=== PATIENT | female | born 1935 | race Caucasian/White ===

== ENCOUNTER 2023-05-05 10:36 | Observation (INO) | payer MEDICARE, SELFPAY ==
[2023-05-05] VITALS (10 sets, daily range): BP systolic 121–204; BP diastolic 65–88; PULSE 66–90; RESP 14–20; TEMP 36.4–37; O2SAT 95–99; BMI 27.1; BMI 26.6
--- NOTE | 2023-05-05 10:51 | ED.RN ---
around 0815, family member noticed she was confused, not answering questions as she normally would. no changes in speech noted. pt is alert/oriented now. pt also noticed her symptoms. symptoms lasted approx 1 hour or 1.5 hours. hx: TIA
--- NOTE | 2023-05-05 10:53 | EDS_ITS ---
HPI History of Present Illness Chief Complaint: Confusion [facility] Medical History (Updated 05/05/23 @ 10:47 by Beronica Flores) HTN (hypertension) TIA (transient ischemic attack) Home Medications calcium carbonate 600 mg-vitamin D3 5 mcg (200 unit) tablet (Calcium 600 + D(3)) 1 tab PO DAILY 05/05/23 [History Last Taken Unknown] cholecalciferol (vitamin D3) 10 mcg (400 unit) capsule (Vitamin D3) 400 unit PO DAILY 05/05/23 [History Last Taken Unknown] dorzolamide 22.3 mg-timolol 6.8 mg/mL eye drops 1 drp ophthalmic (eye) Q12H 05/05/23 [History Last Taken Unknown] hydrochlorothiazide 25 mg tablet 25 mg PO DAILY 05/05/23 [History Last Taken Unknown] metoprolol tartrate 50 mg tablet 50 mg PO Q12H 05/05/23 [History Last Taken Unknown] pravastatin 20 mg tablet 20 mg PO QHS 05/05/23 [History Last Taken Unknown] Allergy/AdvReac Type Severity Reaction Status Date / Time prednisone Allergy Unknown UNKNOWN Verified 05/05/23 10:38 Social History Smoking Status: Never smoker EXAM Physical Exam Const Vital Signs: 05/05/23 10:38 05/05/23 10:46 05/05/23 11:35 Temperature 97.5 F L Temperature Source Temporal Pulse Rate 69 74 70 Respiratory Rate 16 20 H 20 H Blood Pressure 202/79 H 204/81 H 190/84 H Blood Pressure Mean 120 122 119 Pulse Ox 99 98 96 Oxygen Delivery Method Room Air Room Air Room Air MDM MDM MDM Narrative Medical decision making narrative: HISTORY OF PRESENT ILLNESS: 87-year-old female here with concern for confusion. Per the patient's family this started 2 hours prior to arrival. They state patient was feeling well otherwise. They states she became confused sat down and was staring off into space this lasted for several minutes and improved over about an hour or so. No headache, no recent trauma no falls. Patient denies trouble with vision, slurred speech, difficulty swallowing, numbness or weakness or loss of sensation or movement in her extremities. Denies any chest pain or shortness of breath. Denies any vomiting or diarrhea. Denies any trouble with urination, dysuria, hematuria, foul-smelling urine. REVIEW OF SYSTEMS: Pertinent positives: Confusion Pertinent negatives: Head trauma, chest pain, shortness of breath, abdominal pain, vomiting, diarrhea, increased urination, dysuria, hematuria, cough, fever, sick contacts PHYSICAL EXAM: Nursing triage notes reviewed, Vital signs reviewed Constitutional: please see mdm HENT: MMM Eyes: Pupils equal round and reactive to light, Extraocular muscles intact Neck: No stridor, no JVD, full neck ROM Lungs: Clear to auscultation, No wheezing or rales. No increased work of breathing, no conversational dyspnea, no accessory muscle use, no nasal flaring. No respiratory distress noted Heart: Regular rate and rhythm, No murmurs, No rubs and No gallops, 2+ distal pulses (radial, femoral, posterior tibial) in all extremities Abdomen: Soft, there is no tenderness, rigidity, rebound or guarding, no obvious peritoneal signs, no palpable pulsatile abdominal masses, no auscultated abdominal bruit : No CVAT Extremities: No edema Neuro: Alert and oriented x3, neuro exam at baseline, cranial nerves II through XII are intact. No pain with extraocular muscle movement. There is negative test of skew. 5 of 5 strength in upper and lower extremities in flexion extension. Intact sensation to light touch in upper and lower extremity dermatomes. No truncal or extremity ataxia. No dysdiadochokinesia. Normal gait. 2+ reflexes in upper and lower extremities. No meningeal signs. Negative Babinski. NIH of 0. Skin: No rash or lesions noted MEDICAL DECISION MAKING: Chief Complaint: Confusion External records reviewed: Imaging reviewed: No recent advanced imaging of the brain Factors affecting care: Hypertension, hyperlipidemia, TIA Social determinants of health: Elderly History obtained from others: The patient's family Consults: none [facility] Narrative: Patient was initially hypertensive, tachypneic afebrile and nontoxic-appearing. I considered the following differential diagnosis: CVA, TIA, ICH, UTI, other infectious or metabolic encephalopathy I obtained a broad lab and imaging workup to further elucidate the etiology of the patient's complaints. We monitored her blood pressure closely. We will assess the need for additional doses of her home blood pressure regimen if her blood pressures do not improve with time. ALL IMAGES (IF OBTAINED) HAVE BEEN PERSONALLY REVIEWED AND INTERPRETED BY MYSELF. EKG with normal sinus rhythm, normal axis, normal intervals, no obvious STEMI or other ischemic changes Initial high-sensitivity troponin is elevated consistent with myocardial ischemia, repeat high-sensitivity troponin continues to elevate concerning for myocardial ischemia BNP elevated consistent with volume overload, increased ventricular stretch and increase transmural pressure Urinalysis shows no evidence of urinary inflammation suggestive of UTI PTT, PT/INR within normal limits suggest no coagulopathy CBC without leukocytosis, severe anemia, no thrombocytopenia. BMP without evidence of significant electrolyte abnormalities, no anion gap, no acute kidney injury. I have personally reviewed the patient's chest x-ray. Chest x-ray is unremarkable for pulmonary edema, pneumothorax, pneumonia or focal car diopulmonary abnormality. The synthesis of the patient's history, physical exam, vital signs, labs, images suggest hypertensive urgency versus emergency. I do not suspect the patient suffering from coronary artery occlusion given nonischemic EKG however I think her elevated blood pressure caused demand ischemia. She is given aspirin. He is admitted for further monitoring, telemetry monitoring, echocardiogram. The patient and/or family, caregivers express understanding. The patient and/or family, caregivers agrees with the plan. Shared decision making: I will have a discussion with the patient and or visitors regarding risk/benefits of further testing or admission. They will be made aware of of the risk/benefits inherent in this decision they will be given the opportunity to voice understanding. Total critical care time today provided was at least 0 minutes. This excludes separately billable procedures. Critical care time (if documented) is secondary to the patient having high probability of clinically significant/life threatening deterioration in the patient's condition which required my urgent intervention. Impression: 1. Transient confusion 2. Hypertensive urgency vs emergency 3. Elevated troponin Dispo: admit to PCU Obs Lab Data Labs: Laboratory Results - last 24 hr 05/05/23 05/05/23 05/05/23 10:45 10:50 11:40 WBC 6.5 RBC 4.45 Hgb 13.2 Hct 41.0 MCV 92.1 MCH 29.7 MCHC 32.2 RDW Std Deviation 44.1 H RDW Coeff of Domitila 13.0 Plt Count 157 MPV 11.2 Immature Gran % (Auto) 0.500 Neut % (Auto) 77.0 H Lymph % (Auto) 13.1 L [place] % (Auto) 7.4 Eos % (Auto) 1.7 Baso % (Auto) 0.3 Absolute Neuts (auto) 5.0 Absolute Lymphs (auto) 0.85 Nucleated RBC % 0 PT 13.3 INR 1.0 APTT 35.5 Sodium 138 Potassium 3.7 Chloride 102 Carbon Dioxide 32.0 Anion Gap 4 L BUN 19 H Creatinine 0.95 Estim Creat Clear Calc 37.54 Est GFR (MDRD) Af Amer 71 Est GFR (MDRD) Non-Af 59 L BUN/Creatinine Ratio 20.0 Glucose 116 H Calcium 9.7 Troponin I High Sens 72 H B-Natriuretic Peptide 157.7 H Urine Color Yellow Urine Clarity Clear Urine pH 8.0 Ur Specific [place] 1.015 Urine Protein Negative Urine Glucose (UA) Normal Urine Ketones Negative Urine Occult Blood 50 H Urine Nitrite Negative Urine Bilirubin Negative Urine Urobilinogen Normal Ur Leukocyte Esterase 25 H Urine RBC 5-10 SEEN Urine WBC 0-5 SEEN Ur Squamous Epith Cells 0-5 SEEN Urine Bacteria 0 SEEN Urine Mucus 0 SEEN POC Glucose 104 Radiography Diagnostic Testing: Clinical Impression(s) from Imaging Studies Chest X-Ray 05/05/23 11:05 IMPRESSION: No radiographic evidence of acute cardiopulmonary disease. Electronically Signed: Doug Mccloud MD at 11:30 EST , Discharge Plan Triage Chief Complaint: Confusion ED Provider: Slade Martin Dx/Rx/DC Orders Prescriptions: No Action cholecalciferol (vitamin D3) [Vitamin D3] 10 mcg (400 unit) capsule 400 unit PO DAILY calcium carbonate-vitamin D3 [Calcium 600 + D(3)] 600 mg-5 mcg (200 unit) tablet 1 tab PO DAILY hydrochlorothiazide 25 mg tablet 25 mg PO DAILY Patient Comments: TAKE 1 TABLET BY MOUTH EVERY DAY metoprolol tartrate 50 mg tablet 50 mg PO Q12H Patient Comments: Take 1 tablet by mouth two times a day. replaces atenolol pravastatin 20 mg tablet 20 mg PO QHS Patient Comments: TAKE 1 TABLET BY MOUTH ONCE DAILY dorzolamide-timolol 22.3-6.8 mg/mL drops 1 drp ophthalmic (eye) Q12H Patient Comments: INSTILL 1 DROP INTO BOTH EYES TWICE A DAY Primary Care Provider: Kristal Escobar Referrals: Kristal Escobar MD [Primary Care Provider] -
--- NOTE | 2023-05-05 11:04 | ED.RN ---
Dr. Alfaro ordered to not call stroke Alert at this time
--- NOTE | 2023-05-05 11:05 | RAD_ITS ---
INDICATION: Neuro deficit, acute, stroke suspected EXAMINATION/TECHNIQUE: X-RAY - XR Chest 1 View COMPARISON: No relevant prior comparison study available FINDINGS: LINES/DEVICES: None. LUNGS: No consolidation, edema or effusion. No pneumothorax. MEDIASTINUM AND CARDIOVASCULAR STRUCTURES: Cardiac silhouette not enlarged. Central airways and mediastinal contour are unremarkable. BONES AND SOFT TISSUES: [Irregularity of the right greater tuberosity with adjacent small calcification suggestive of calcific tendinitis of the right shoulder. RAD/Chest 1 View IMPRESSION: No radiographic evidence of acute cardiopulmonary disease. Electronically Signed: Doug Mccloud MD at 11:30 EST ,
--- NOTE | 2023-05-05 11:07 | CT_ITS ---
INDICATION: confusion EXAMINATION: CT BRAIN WITHOUT CONTRAST, CTA HEAD, AND CTA NECK TECHNIQUE: Noncontrast axial images were obtained of the brain. Subsequently, routine carotid CT angiogram protocol was performed without and with IV contrast. In addition, images were obtained of the [place] of [place]. NASCET criteria using the distal ICAs for comparison were used for evaluation of stenoses. 3D reconstructions were reviewed. A radiation dose optimization technique was used for this scan. IV Contrast dosage and agent: 100 cc of [id number] COMPARISON: No relevant prior comparison study available FINDINGS: --CT BRAIN WITHOUT CONTRAST: BRAIN PARENCHYMA: No intra- or extra-axial hemorrhage. No evidence of acute infarct. No intracranial mass or mass effect. There is preservation of the mai/white matter interface. Posterior fossa structures are unremarkable. CSF SPACES: Appropriate for age. No hydrocephalus. Basal cisterns are patent. CALVARIUM, SKULL BASE, PARANASAL SINUSES AND MASTOID AIR CELLS: Retention cysts or polyps in both maxillary sinuses. --CTA NECK: AORTIC ARCH AND BRANCHES: Normal anatomy, patent. RIGHT CCA: Atherosclerotic calcifications in the region of the right bulb region with less than 50% stenosis. RIGHT ICA: No occlusion, significant stenosis or dissection. LEFT CCA: Mild atherosclerotic calcifications in the left bulb region without significant stenosis. LEFT ICA: No occlusion, significant stenosis or dissection. RIGHT VERTEBRAL ARTERY: No occlusion, significant stenosis or dissection. LEFT VERTEBRAL ARTERY: No occlusion, significant stenosis or dissection. NECK SOFT TISSUES: Unremarkable. --CTA HEAD: --Anterior circulation: ICAs: No significant stenosis at the intracranial/visualized segments. ACAs: No significant stenosis at the visualized segments. ACOM: Present. MCAs: No significant stenosis at the visualized segments. --Posterior circulation: PCOMs: Patent. packaging line attendant: origin of the left posterior cerebral artery. No significant stenosis. BASILAR ARTERY: No significant stenosis. VERTEBRAL ARTERIES: No significant stenosis at the intradural/visualized segments. Dominant right side. No evidence of intracranial aneurysm or vascular malformation. CT/CTA Head AND Neck W/ Contrast IMPRESSION: 1. No acute intracranial process. 2. Atherosclerotic calcifications in the bulb regions bilaterally with less than 50% stenosis of the right common carotid artery. 3. No intracranial great vessel stenosis. 4. Patent bilateral vertebral arteries without evidence of stenosis or dissection. Electronically Signed: Doug Mccloud MD at 12:33 EST ,
[2023-05-05 11:11] LABS: Bedside Glucose 104 mg/dL (74-106)
--- NOTE | 2023-05-05 11:13 | ED.RN ---
NO OLD EKG
[2023-05-05 11:18] LABS: Absolute Lymphocyte Count 0.85 X10^3/uL (0.83-4.51); Basophil# 0.02 X10^3/uL; Basophil% 0.3 % (0-1); Eosinophil# 0.11 X10^3/uL; Eosinophils% 1.7 % (0-5); Hemoglobin 13.2 g/dL (12.0-15.0); Lymphocyte # 0.85 X10^3/ul (0.83-4.51); Lymphocyte % 13.1 % (19-41); Mean Corp Hgb Conc 32.2 g/dL (32-36); Mean Corpuscular Hgb 29.7 pg (27.0-32.0); Mean Corpuscular Volume 92.1 fL (81-99); Mean Platelet Vol. 11.2 fl (6.2-12.0); Monocyte# 0.48 X10^3/uL; Monocyte% 7.4 % (0-10); NRBC Flagged by Analyzer 0 % (0-5); Neutrophil # 4.98 X10^3/uL (2.7-7.7); Platelet Count 157 K/mm3 (150-450); RBC Distribution Width SD 44.1 fl (35.1-43.9); Red Blood Count 4.45 M/mm3 (4.2-5.4); White Blood Count 6.5 K/mm3 (4.4-11.0)
[2023-05-05 11:22] LABS: Prothrombin Time (Protime)PT. 13.3 SECONDS (11.7-14.9)
[2023-05-05 11:23] LABS: Partial Thromboplast Time 35.5 Seconds (24.1-36.2)
[2023-05-05 11:34] LABS: Anion Gap 4 (5-15); BUN 19 mg/dL (7-18); Calcium,Total 9.7 mg/dL (8.5-10.1); Chloride 102 mmol/L (98-107); Creatinine, Serum 0.95 mg/dL (0.55-1.02); EST Glomerular Filtration Rate 59 mL/min (>60); Est Glom Filt Rate - Afr Amer 71 mL/min (>60); Estimated Creatinine Clearance 37.54 ml/min; Glucose 116 mg/dL (74-106); Potassium 3.7 mmol/L (3.5-5.1); Sodium Level 138 mmol/L (136-145); Troponin-I HS 72 pg/mL (3.0-54.0)
[2023-05-05 11:48] LABS: Bacteria 0 SEEN /hpf (None Seen); Mucous, Urine 0 SEEN /hpf (<or=2+)
[2023-05-05 11:52] LABS: Color, Urine Yellow (Yellow); Glucose, Dipstick Normal (Normal); Ketone-Dipstick Negative (Negative); Leukocyte Esterase-Dipstick 25 /ul (Negative); Nitrite-Dipstick Negative (Negative); Occult Blood-Urine 50 /ul (Negative); Protein-Dipstick Negative (Negative); Specific Gravity, Urine 1.015 (1.002-1.030); Urine Bilirubin Dipstick Negative (Negative); Urine Clarity Clear (Clear); Urine Urobilinogen Normal (Normal)
[2023-05-05 12:05] LABS: BNP,B-Type NATRIURETIC PEPTIDE 157.7 pg/mL (0-100)
[2023-05-05 12:18] LABS: Red Blood Cells-Urine 5-10 SEEN /hpf (0-5); Squamous Epithelial Cells - UA 0-5 SEEN /hpf (5-10); White Blood Cells 0-5 SEEN /hpf (0-5)
[2023-05-05] MEDS: Aspirin 325 MG Tablet PO (12:47)
[2023-05-05 13:42] LABS: Troponin-I HS 123 pg/mL (3.0-54.0)
--- NOTE | 2023-05-05 14:09 | HP.PCM.HOS_ITS ---
HPI - General General Date of Service: 05/05/23 Chief Complaint: TIA r/o and htn urgency vs emergency HPI Narrative GOLDY CUNNINGHAM, is a 87-year-old female with a history of hypertension presented to [facility] 05/05/2023 due to confusion started 2 hours prior to arrival. She became confused and sat down and stared off into space for several minutes with symptoms improving over an hour or so and she was back to normal by presentation in the ED. There were no other associated symptoms. In the ED her blood pressure was 202/79 and her troponin was 72 and up trended to 123. She was given the option by ED physician of coming in overnight for monitoring and further work-up versus home and patient preferred to stay. Hospitalist contacted for admission. Seen with family members at bedside. She has been in her usual health but then earlier today some asked her a question and she stared into space for 3 minutes and then was slightly conf used but came back to baseline over 1 hour and had no further confusion or other complaints. Presently has 0 complaints and feels she is back to normal and denied anything or any complaints proceeding this episode. [facility] Medical History (Updated 05/05/23 @ 14:[address] Ananya Marlow MD) HTN (hypertension) TIA (transient ischemic attack) Home Medications calcium carbonate 600 mg-vitamin D3 5 mcg (200 unit) tablet (Calcium 600 + D(3)) 1 tab PO DAILY 05/05/23 [History Last Taken Unknown] cholecalciferol (vitamin D3) 10 mcg (400 unit) capsule (Vitamin D3) 400 unit PO DAILY 05/05/23 [History Last Taken Unknown] dorzolamide 22.3 mg-timolol 6.8 mg/mL eye drops 1 drp ophthalmic (eye) Q12H [History Last Taken Unknown] hydrochlorothiazide 25 mg tablet 25 mg PO DAILY 05/05/23 [History Last Taken Unknown] metoprolol tartrate 50 mg tablet 50 mg PO Q12H 05/05/23 [History Last Taken Unk nown] pravastatin 20 mg tablet 20 mg PO QHS 05/05/23 [History Last Taken Unknown] Allergy/AdvReac Type Severity Reaction Status Date / Time prednisone Allergy Unknown UNKNOWN Verified 05/05/23 10:38 Social History Smoking Status: Never smoker ROS ROS Narrative General: Denies fever/chills HENT: Denies headache, denies stuffy nose, denies sore throat EYES: Denies changes in vision Resp: Denies cough, denies shortness of breath Cardiac: Denies chest pain GI: Denies abdominal pain, denies changes in bowel, denies nausea/vomiting : Denies changes in urination Extremity: Denies swelling MSK: Denies weakness Neuro: Denies any numbness/tingling Heme: Denies any bleeding or bruising Skin: Denies rashes Psychiatric: No complaints voiced Vital Signs Vital Signs Vital Signs: 05/05/23 10:38 05/05/23 10:46 05/05/23 11:35 Temperature 97.5 F L Temperature Source Temporal Pulse Rate 69 74 70 Respiratory Rate 16 20 H 20 H Blood Pressure 202/79 H 204/81 H 190/84 H Blood Pressure Mean 120 122 119 Pulse Ox 99 98 96 Oxygen Delivery Method Room Air Room Air Room Air 05/05/23 12:43 05/05/23 12:48 05/05/23 12:49 Temperature 97.7 F L Temperature Source Pulse Rate 80 90 Respiratory Rate 18 18 Blood Pressure 154/88 H 121/65 H 121/65 H Blood Pressure Mean 110 83 83 Pulse Ox 97 96 Oxygen Delivery Method Room Air Weight Weight: 74.162 kg Body Mass Index (BMI) 27.1 Physical Exam Narrative General: Alert, oriented, no apparent distress HEENT: Atraumatic, normocephalic Eyes: Anicteric, normal conjunctiva, extraocular movements intact, pupils equal Neck: Supple Respiratory: Clear to auscultation bilaterally, normal respiratory effort Cardiovascular: Regular rate and rhythm GI: Soft, nontender, nondistended Extremities: No edema Musculoskeletal: Strength 5 out of 5 in right upper extremity, 5 out of 5 left upper extremity, 5 out of 5 right lower extremity, 5 out of 5 left lower extremity Neuro: No overt focal neurological deficits, cranial nerves II through XII intact, [id number] without significant difficulty bilaterally Skin: No rashes appreciated Psych: Cooperative Results Lab / Micro Data 05/05/23 10:50 05/05/23 10:50 Labs: Laboratory Results - last 24 hr 05/05/23 10:45: POC Glucose 104 05/05/23 10:50: WBC 6.5, RBC 4.45, Hgb 13.2, Hct 41.0, MCV 92.1, MCH 29.7, MCHC 32.2, RDW Std Deviation 44.1 H, RDW Coeff of Domitila 13.0, Plt Count 157, MPV 11.2, Immature Gran % (Auto) 0.500, Neut % (Auto) 77.0 H, Lymph % (Auto) 13.1 L, [place] % (Auto) 7.4, Eos % (Auto) 1.7, Baso % (Auto) 0.3, Absolute Neuts (auto) 5.0, Absolute Lymphs (auto) 0.85, Nucleated RBC % 0, PT 13.3, INR 1.0, APTT 35.5, Sodium 138, Potassium 3.7, Chloride 102, Carbon Dioxide 32.0, Anion Gap 4 L, BUN 19 H, Creatinine 0.95, Estim Creat Clear Calc 37.54, Est GFR (MDRD) Af Amer 71, Est GFR (MDRD) Non-Af 59 L, BUN/Creatinine Ratio 20.0, Glucose 116 H, Calcium 9.7, Troponin I High Sens 72 H, B-Natriuretic Peptide 157.7 H 05/05/23 11:40: Urine Color Yellow, Urine Clarity Clear, Urine pH 8.0, Ur Specific [place] 1.015, Urine Protein Negative, Urine Glucose (UA) Normal, Urine Ketones Negative, Urine Occult Blood 50 H, Urine Nitrite Negative, Urine Bilirubin Negative, Urine Urobilinogen Normal, Ur Leukocyte Esterase 25 H, Urine RBC 5-10 SEEN, Urine WBC 0-5 SEEN, Ur Squamous Epith Cells 0-5 SEEN, Urine Bacteria 0 SEEN, Urine Mucus 0 SEEN 05/05/23 12:40: Troponin I High Sens 123 H* Imagaing Radiology Impression Chest X-Ray 05/05/23 11:05 IMPRESSION: No radiographic evidence of acute cardiopulmonary disease. Electronically Signed: Doug Mccloud MD at 11:30 EST , Head/Neck CTA 05/05/23 11:07 IMPRESSION: 1. No acute intracranial process. 2. Atherosclerotic calcifications in the bulb regions bilaterally with less than 50% stenosis of the right common carotid artery. 3. No intracranial great vessel stenosis. 4. Patent bilateral vertebral arteries without evidence of stenosis or dissection. Electronically Signed: Doug Mccloud MD at 12:33 EST , Assessment & Plan Assessment/Plan (1) Accelerated hypertension: (2) Transient confusion: (3) History of lumbar surgery: PLAN: Plan #Transient altered mental status/unresponsive for 3 minutes return back to baseline over 1 hour -May be due to hypertensive emergency versus TIA -Admit to tele -CTA head and neck in ED with no significant stenosis or stroke -MRI unable to be obtained, per patient she had a edis placed in her back 15 years ago and was specifically told she cannot have an MRI, will repeat CT scan in 24 hours -NIH q4hr -asa, statin -Echo w/ bubble study -PT/OT/Speech eval -Hold BP medications to allow for permissive hypertension for 24 hours unless SBP greater than 220 or DBP greater than 120 or until stroke is ruled out #Elevated troponin/hypertensive emergency -Patient with blood pressure 202/79 in the ED when she arrived with a troponin of 72 up trended to 123 -No chest pain or other underlying etiology suggesting a primary cardiac complaint -Suspect the elevated troponin is secondary to her very high blood pressure which would lead to diagnosis of hypertensive emergency -BP back down to normal range at this time -Does report compliance with her home medications and took them this morning -Trending troponin -We will obtain echocardiogram -We will obtain TSH #DVT ppx: Lovenox subcu Ananya Marlow MD Time spent in the patient's overall evaluation,decision-making process, review of diagnostic data, adjustment of management, discussion with other providers, nursing nursing and ancillary staff involved in patient's care documentation, 55 minutes Charges/Coding Visit Charges Inpatient E&M: 14441 Init Hosp L2
--- NOTE | 2023-05-05 14:13 | ECHOD_ITS ---
Reason For Study: TIA/Stroke Procedure This was a 2D Doppler, Color Flow transthoracic echocardiogram. Exam performed portable in patient room. Left Ventricle Normal size and thickness. The left ventricular ejection fraction is 65 %. Normal diastology for age. Right Ventricle Normal right ventricle. Atria The left atrium is moderately enlarged. Normal right atrium. Bubble contrast study is negative for PFO/ASD. Mitral Valve There is Mild focal posterior mitral annular calcification. Mild (1+) mitral valve insufficiency. Tricuspid Valve Mild tricuspid valve insufficiency. Normal pulmonary artery pressure. Aortic Valve Trisinus/trileaflet aortic valve. Mild-Moderate (1-2+) aortic valve insufficiency. Pulmonic Valve The pulmonic valve is not well visualized. Trivial pulmonic valve insufficiency. Great Vessels Normal sized aortic root. Pericardium/Pleural Small loculated posterior basal pericardial effusion. Medication Performed a rapid injection of agitated mix of 9 cc saline and 1cc air to assess for atrial septal defect. MMode/2D Measurements & Calculations LVIDd: 4.1 cm IVSd: 1.1 cm Ao root diam: 3.5 cm LVIDs: 2.2 cm LVPWd: 0.92 cm RVDd: 2.8 cm FS: 46.6 % LAV(MOD-bp): 44.8 ml LVAd ap4: 20.3 cm2 SV(MOD-sp4): 39.1 ml LAV(MOD-bp) Indexed: 24.9 ml/m2 LVLd ap4: 6.2 cm LAV(MOD-sp2): 40.5 ml EDV(MOD-sp4): 55.6 ml LAV(MOD-sp4): 47.9 ml EDV(sp4-el): 56.2 ml LVAs ap4: 9.5 cm2 LVLs ap4: 5.3 cm ESV(MOD-sp4): 16.5 ml ESV(sp4-el): 14.4 ml EF(MOD-sp4): 70.3 % EF(sp4-el): 74.4 % SV(sp4-el): 41.8 ml LA A4 area: 18.2 cm2 LA dimension(2D): 4.0 cm RA A4 area: 12.2 cm2 TAPSE: 1.9 cm Time Measurements MV dec time: 0.20 sec Doppler Measurements & Calculations MV E max justino: 78.9 cm/sec Lat Peak E' Justino: 6.9 cm/sec Med Peak E' Justino: 5.2 cm/sec MV A max justino: 61.1 cm/sec E/E' lat: 11.5 E/E' med: 15.1 MV E/A: 1.3 MV dec slope: 393.7 cm/sec2 Ao V2 max: 159.8 cm/sec AI max justino: 453.2 cm/sec Ao max P.2 mmHg AI max P.2 mmHg Ao V2 mean: 110.1 cm/sec AI dec slope: 313.7 cm/sec2 Ao mean P.3 mmHg AI P1/2t: 423.2 msec Ao V2 VTI: 30.2 cm AV (velocity ratio): 0.90 LV V1 max: 120.3 cm/sec PA V2 max: 99.1 cm/sec TR max justino: 258.1 cm/sec LV V1 max P.8 mmHg TR max P.6 mmHg LV V1 mean P.9 mmHg LV V1 mean: 79.2 cm/sec LV V1 VTI: 27.1 cm ECHO/Echo Complete Interpretation Summary The left ventricular ejection fraction is 65 %. The left atrium is moderately enlarged. Mild (1+) mitral valve insufficiency. There is Mild focal posterior mitral annular calcification. Mild tricuspid valve insufficiency. Mild-Moderate (1-2+) aortic valve insufficiency. Small loculated posterior basal pericardial effusion. Bubble contrast study is negative for PFO/ASD. Ordering Physician: Ananya Marlow Referring Physician: Kristal Escobar Performed By: Rosi Diaz, TYLER, RVT
[2023-05-05 18:37] LABS: Troponin-I HS 152 pg/mL (3.0-54.0)
[2023-05-05] MEDS: Atorvastatin Calcium 40 MG Tablet PO (21:08)
[2023-05-05] MEDS: Dorzolamide HCL/Timolol 10 ml Bottle 1 DRP OPHTHALMIC (21:08)
[2023-05-05] MEDS: MELATONIN 10 MG TABLET PO (22:32)
[2023-05-06 01:05] VITALS: BP 128/68; PULSE 65; RESP 16; TEMP 37; O2SAT 94
[2023-05-06 04:49] VITALS: BMI 26.6
[2023-05-06 05:05] VITALS: BP 133/72; PULSE 65; RESP 16; TEMP 36.9; O2SAT 99
[2023-05-06 06:38] LABS: Absolute Lymphocyte Count 1.03 X10^3/uL (0.83-4.51); Absolute Neutrophil Count 3.2 X10^3/uL (2.0-7.7); Basophil# 0.02 X10^3/uL; Basophil% 0.4 % (0-1); Eosinophil# 0.07 X10^3/uL; Eosinophils% 1.5 % (0-5); Hematocrit 36.8 % (37-47); Hemoglobin 11.6 g/dL (12.0-15.0); Lymphocyte # 1.03 X10^3/ul (0.83-4.51); Lymphocyte % 21.5 % (19-41); Mean Corp Hgb Conc 31.5 g/dL (32-36); Mean Corpuscular Hgb 29.5 pg (27.0-32.0); Mean Corpuscular Volume 93.6 fL (81-99); Mean Platelet Vol. 11.2 fl (6.2-12.0); Monocyte# 0.42 X10^3/uL; Monocyte% 8.8 % (0-10); NRBC Flagged by Analyzer 0 % (0-5); Neutrophil # 3.24 X10^3/uL (2.7-7.7); Neutrophil % 67.4 % (47-70); Platelet Count 141 K/mm3 (150-450); RBC Distribution Width CV 13.2 % (11.6-14.6); RBC Distribution Width SD 45.2 fl (35.1-43.9); Red Blood Count 3.93 M/mm3 (4.2-5.4); White Blood Count 4.8 K/mm3 (4.4-11.0)
[2023-05-06 07:32] LABS: Anion Gap 6 (5-15); BUN 25 mg/dL (7-18); BUN/Creat Ratio 26.3 RATIO (10-20); Calcium,Total 9.3 mg/dL (8.5-10.1); Chloride 106 mmol/L (98-107); Cholesterol 180 mg/dL (200); Creatinine, Serum 0.95 mg/dL (0.55-1.02); EST Glomerular Filtration Rate 59 mL/min (>60); Est Glom Filt Rate - Afr Amer 72 mL/min (>60); Estimated Creatinine Clearance 37.54 ml/min; Glucose 111 mg/dL (74-106); High Density Lipoprotein 48 mg/dL; Potassium 3.6 mmol/L (3.5-5.1); Sodium Level 140 mmol/L (136-145); Thyroid Stim Hormone (TSH) 4.98 uIU/mL (0.358-3.74); Triglycerides 113 mg/dL; Very Low Density Lipoprotein 23 mg/dL (5-40)
[2023-05-06 08:03] VITALS: BP 177/83; PULSE 77; RESP 14; TEMP 36.9; O2SAT 99
[2023-05-06] MEDS: Dorzolamide HCL/Timolol 10 ml Bottle 1 DRP OPHTHALMIC (08:05)
[2023-05-06] MEDS: Aspirin 81 MG TAB.CHEW PO (08:06)
[2023-05-06] MEDS: Enoxaparin 40 MG/0.4 ML Syringe SC (08:06)
[2023-05-06 08:48] LABS: Troponin-I HS 45 pg/mL (3.0-54.0)
[2023-05-06 09:40] VITALS: O2SAT 96
--- NOTE | 2023-05-06 12:10 | CASEMGMT ---
Social Work SW met w/pt in room, pt completed PHQ-9 w/SW. No indications of depression at this time. Pt lives home alone, is fully independent, was getting Thanksgiving dinner ready for her family when pt had to come into the hospital. No referrals needed at this time. NAVARRO Lemus
--- NOTE | 2023-05-06 13:00 | CT_ITS ---
STUDY: CT BRAIN WITH AND WITHOUT CONTRAST REASON FOR EXAM: Female, 87 years old. Altered mental status RADIATION DOSAGE (If Supplied By Facility): CTDIvol = ( 44.99 ) mGy, DLP = ( 1479.73 ) mGycm TECHNIQUE: Transaxial CT imaging of the brain was performed pre and post contrast administration. The examination was performed with intravenous administration of IV 50mL Isovue-300. Individualized dose optimization techniques were used for this CT. COMPARISON: None. FINDINGS: Normal soft tissue structures. Normal calvarium. Normal size ventricles and extra-axial spaces for the patient''s age. Normal white matter tracts of the cerebral hemispheres. Normal basal ganglia and thalami. Normal brainstem. Normal cerebellum. There is no intracranial hemorrhage. There are no findings of an acute ischemic infarction. Mucous retention cyst/polyp in the left maxillary sinus No suspicious enhancing lesion. CT/Brain/Head W/WO Contrast IMPRESSION: Age consistent changes, no acute findings, no suspicious enhancing lesion Electronically Signed: Carmine Reyes MD at 14:24 EST ,
--- NOTE | 2023-05-06 13:30 | CASEMGMT ---
[facility] NOTE: PT/OT notes have been reviewed--no additional therapy recommended. ST eval has been completed. Reg diet and thin liquids recommended. RN CM to room. Pt resting in bed. Pt denies having any discharge needs or concerns. Jose VASQUEZN RN CM
[2023-05-06 14:00] VITALS: BP 115/67; PULSE 76; RESP 14; TEMP 36.9; O2SAT 99
--- NOTE | 2023-05-06 14:32 | CASEMGMT ---
Met with patient and her daughter to complete ARIZA form. ARIZA form explained to patient who voiced understanding and signed form. Original form placed in pt?s chart and copy provided to patient. Triny Carrion, Discharge Planning Asst
--- NOTE | 2023-05-06 14:52 | PCM.DC.SUM ---
Providers Date of Admission: 05/05/23 Date of Discharge: 05/06/23 Primary Care Physician: Dr. Kristal Escobar MD Reason For Visit: TIA AND HTN URGENCY VS EMERGENCY Diagnosis Discharge Diagnosis (1) Accelerated hypertension: Status: Acute Code(s): I10 - Essential (primary) hypertension (2) Transient confusion: Status: Acute Code(s): R41.0 - Disorientation, unspecified (3) History of lumbar surgery: Status: Acute Code(s): Z98.890 - Other specified postprocedural states Medications at Discharge Home Medications calcium carbonate 600 mg-vitamin D3 5 mcg (200 unit) tablet (Calcium 600 + D(3)) 1 tab PO DAILY 05/05/23 cholecalciferol (vitamin D3) 10 mcg (400 unit) capsule (Vitamin D3) 400 unit PO DAILY 05/05/23 dorzolamide 22.3 mg-timolol 6.8 mg/mL eye drops 1 drp ophthalmic (eye) Q12H 05/05/23 hydrochlorothiazide 25 mg tablet 25 mg PO DAILY 05/05/23 metoprolol tartrate 50 mg tablet 50 mg PO Q12H 05/05/23 pravastatin 20 mg tablet 20 mg PO QHS 05/05/23 amlodipine 2.5 mg tablet 2.5 mg PO DAILY #30 tabs 05/06/23 aspirin 81 mg chewable tablet 81 mg PO BREAKFAST #0 tabs 05/06/23 Hospital Course Procedures 2-D Echocardiogram, EKG and - (CT brain x 2/EEG) Summary of Care Provided Minutes Spent on Discharge: 30 Hospital Course: Mrs. Reddy is an 87-year-old white female who appears much younger than stated age that presented to the emergency department at [facility] on 05/05/2023 with a chief complaint of transient confusion. The confusion started approximately 2 hours prior to arrival. She was cooking Thanksgiving dinner and became confused and sat down and stared off into space for several minutes with symptoms improving after about an hour or so. At the time of presentation to the emergency department she was back to her normal baseline. Per her son she had no other associated symptoms. Blood pressure on arrival to the emergency department was found to be 202/79 and her initial troponin was 72 with an uptrend to 123 on repeat. However her troponin resolved back to normal today after admission. She was given the option by the ED physician to coming in overnight for monitoring and further workup versus discharge home and the patient preferred to stay given the symptoms. She had been in her usual state of health and been compliant with her medications when she had the event. Family states lasted approximately 2 to 3 minutes and then she was slightly confused but came back to her baseline over an hour and had no other complaints. Her NIH on presentation was 0. CT on presentation was unremarkable and CTA of the head and neck showed no acute intracranial process with atherosclerotic calcifications at the bulb of the right common carotid artery that is less than 50% and no intracranial great vessel stenosis with patent vertebral arteries bilaterally. She was to the PCU and monitored on telemetry. No abnormal telemetry events were noted. An echocardiogram was performed and showed an EF of 65% with a moderately enlarged LA, moderate aortic valve insufficiency and a small basal pericardial effusion with a negative bubble study. EEG was performed and showed no epileptiform discharges or abnormalities. CT of the brain initially was unremarkable repeat CT of the brain was done at 24 hours with contrast as the patient has metallic implants and is unable to have an MRI. This demonstrated age consistent changes with no acute findings and no suspicious enhancing lesions. Her blood pressure came down nicely without any significant treatment. Given her negative CT findings she was restarted on her home antihypertensives and in addition we added a low-dose amlodipine at 2.5 mg daily. I have asked her to follow-up with her primary care physician for a blood pressure check with the additional medication. Goal blood pressure should be below 130/80. She may need up titration of medications depending on the changes with her low-dose Norvasc addition. She was instructed to continue home baby aspirin and continue the rest of her baseline medications. Prescription for the Norvasc was sent to her local pharmacy and she was discharged home in stable condition on 05/06/2023. Discharge diagnoses: Transient global amnesia Hypertensive urgency/emergency Troponin elevation Right carotid artery stenosis Hypertension Hyperlipidemia History of lumbar fusion History of TIA Physical Exam Const alert, oriented x3, no apparent distress, average body habitus, no limitations, healthy appearing and well nourished Constitutional Narrative: Extremely pleasant, elderly, white female, sitting up in bed, appears younger than stated age, comfortable and nontoxic appearing General Appearance: cooperative, comfortable, well kempt and well developed Orientation / Consciousness: awake, oriented to person, oriented to place and oriented to time Exam Limitations: no limitations HEENT normocephalic, head/scalp atraumatic, hearing grossly normal bilaterally and moist oral mucous membranes HEENT Narrative: Mallampati 2, no thrush, dentures in place Eyes PERRL, EOMs intact bilaterally and conjunctivae normal Eyes Narrative: No scleral icterus Neck no lymphadenopathy and supple Neck Narrative: Trachea midline, no thyroid in the Resp normal respiratory effort, no retractions, no use of accessory muscles and clear to auscultation bilaterally Auscultation: Negative for rales, rhonchi or wheezes Cardio regular rate, regular rhythm, S1 normal heart sound, S2 normal heart sound, no murmurs, no rub, no gallops and no clicks GI normal to inspection, nondistended, normoactive bowel sounds, soft to palpation and non-tender Extremity no clubbing, cyanosis or edema Extremity Narrative: 2+ pedal pulses Neuro oriented x3, CN's II-XII intact bilaterally, moves all extremities, no focal motor deficits and no sensory deficits noted Neuro Narrative: Mild generalized weakness with proximal musculature being slightly diminished this is 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 Speech: speech normal Psych affect normal Weight / BMI Weight Weight: 72.7 kg Body Mass Index (BMI) 26.6 ABG / Lab / Microbiology Data 05/06/23 06:10 05/06/23 06:10 Laboratory: Laboratory Results - last 24 hr 05/05/23 17:03: Troponin I High Sens 152 H* 05/06/23 06:10: WBC 4.8, RBC 3.93 L, Hgb 11.6 L, Hct 36.8 L, MCV 93.6, MCH 29.5, MCHC 31.5 L, RDW Std Deviation 45.2 H, RDW Coeff of Domitila 13.2, Plt Count 141 L, MPV 11.2, Immature Gran % (Auto) 0.400, Neut % (Auto) 67.4, Lymph % (Auto) 21.5, [place] % (Auto) 8.8, Eos % (Auto) 1.5, Baso % (Auto) 0.4, Absolute Neuts (auto) 3.2, Absolute Lymphs (auto) 1.03, Nucleated RBC % 0, Sodium 140, Potassium 3.6, Chloride 106, Carbon Dioxide 28.0, Anion Gap 6, BUN 25 H, Creatinine 0.95, Estim Creat Clear Calc 37.54, Est GFR (MDRD) Af Amer 72, Est GFR (MDRD) Non-Af 59 L, BUN/Creatinine Ratio 26.3 H, Glucose 111 H, Calcium 9.3, Triglycerides 113, Cholesterol 180, LDL Cholesterol 109, VLDL Cholesterol 23, HDL Cholesterol 48, TSH 4.98 H 05/06/23 08:24: Troponin I High Sens 45 Radiography Diagnostic Testing: Radiology Impression Echocardiogram 05/05/23 14:13 Interpretation Summary The left ventricular ejection fraction is 65 %. The left atrium is moderately enlarged. Mild (1+) mitral valve insufficiency. There is Mild focal posterior mitral annular calcification. Mild tricuspid valve insufficiency. Mild-Moderate (1-2+) aortic valve insufficiency. Small loculated posterior basal pericardial effusion. Bubble contrast study is negative for PFO/ASD. Ordering Physician: Ananya Marlow Referring Physician: Kristal Escobar Performed By: Rosi Diaz, TYLER, RVT Brain CT 05/06/23 13:00 IMPRESSION: Age consistent changes, no acute findings, no suspicious enhancing lesion Electronically Signed: Carmine Reyes MD at 14:24 EST Reading Location ID and State: [facility] / [place] , Service support , D/C Instructions Discharge Diet: Low fat / Low cholesterol Discharge Activity: Return to Normal Activity Meaningful Use Info Meaningful Use Diagnoses (Choose all that apply): None applicable Discharge Plan Admission Admit Date/Time: 05/05/23 14:09 Primary Reason for Your Visit: Confusion Attending Provider: Meagan Freire Primary Care Provider: Kristal Escobar Consulting Providers: Ananya Marlow Instructions Additional Instructions / Restrictions: 1. Please follow-up with your primary care physician for at least a blood pressure check within the next 1 week Discharge Orders/Prescriptions Prescriptions: New amlodipine 2.5 mg Tablet 2.5 mg PO DAILY Qty: 30 1RF aspirin 81 mg Tablet,Chewable 81 mg PO BREAKFAST Qty: 0 0RF Continued cholecalciferol (vitamin D3) [Vitamin D3] 10 mcg (400 unit) capsule 400 unit PO DAILY calcium carbonate-vitamin D3 [Calcium 600 + D(3)] 600 mg-5 mcg (200 unit) tablet 1 tab PO DAILY hydrochlorothiazide 25 mg tablet 25 mg PO DAILY Patient Comments: TAKE 1 TABLET BY MOUTH EVERY DAY metoprolol tartrate 50 mg tablet 50 mg PO Q12H Patient Comments: Take 1 tablet by mouth two times a day. replaces atenolol pravastatin 20 mg tablet 20 mg PO QHS Patient Comments: TAKE 1 TABLET BY MOUTH ONCE DAILY dorzolamide-timolol 22.3-6.8 mg/mL drops 1 drp ophthalmic (eye) Q12H Patient Comments: INSTILL 1 DROP INTO BOTH EYES TWICE A DAY Referrals / Follow Up: Kristal Escobar MD [Primary Care Provider] - Within 1 Week (Please follow-up at your primary care's office at least in the next week for blood pressure check) Disposition Disposition (needs filled in before D/C Order can be placed): Home, Self Care Charges/Coding Visit Charges Inpatient E&M: 86617 Disch Hosp >30min
== END 2023-05-06 15:58 | disposition home or self-care (01) ==
LOC: ED 14:16 → PCU 14:18
PROVIDERS: Admitting Provider Internal Medicine; Emergency Provider Emergency Medicine; PCP Internal Medicine; Visit Provider Internal Medicine
DX: G45.4 Transient global amnesia (principal); I16.1 Hypertensive emergency; E78.5 Hyperlipidemia, unspecified; I10 Essential (primary) hypertension; R77.8 Other specified abnormalities of plasma proteins; Z79.899 Other long term (current) drug therapy; I08.3 Combined rheumatic disorders of mitral, aortic and tricuspid valves; Z86.73 Personal history of transient ischemic attack (TIA), and cerebral infarction without residual deficits
CPT/HCPCS: 36415; 70470; 70496; 70498; 71045; 80048; 80061; 81001; 82962; 83880; 84443; 84484; 85025; 85610; 85730; 92610; 93005; 93306; 95819; 96372; 99221; 99285; Q9967; A4216; G0378